=== PATIENT | female | born 1995 ===

== ENCOUNTER 2018-01-19 09:05 | Emergency (ER) | payer MEDICAID, OTHER ==
[2018-01-19 09:26] VITALS: O2SAT 100
--- NOTE | 2018-01-19 10:21 | C.PDOC ---
History Of Present Illness 22 year old female presents to the ER with a complaint of a nonproductive cough , congestion, and flu like symptoms for the past week. Patient has been taking nyquil, dayquil, and theraflu with some improvement of symptoms; however, today she was cleaning with chlorox and inhaled the fumes which exacerbated her cough. Patient states the persistent cough has now caused her chest wall pain and back pain. Denies sore throat, ear pain, or use of control. Chief Complaint (Nursing): Chest Pain History Per: Patient History/Exam Limitations: no limitations Current Symptoms Are (Timing): Still Present Associated Symptoms: denies: Nausea, Dyspnea, Diaphoresis, Syncope Modifying Factors: None Exacerbating Factors: Other (Cough) Alleviating Factors: None Recent travel outside of the [place]: No Past Medical History Reviewed: Historical Data, Nursing Documentation, Vital Signs Vital Signs: Last Vital Signs Temp 98.4 F 01/19/18 14:30 Pulse 85 01/19/18 14:30 Resp 19 01/19/18 14:30 BP 105/66 01/19/18 14:30 Pulse Ox 100 01/19/18 17:20 Surgical History: Appendectomy - [facility] Procedures INJECT ANTIBIOTIC (06/27/14) LAPAROSCOP APPENDECTOMY (09/18/13) PERCUTANEOUS ABDOMINAL DRAINAGE (09/28/13) Family History: States: Unknown Family Hx - Social History Hx Alcohol Use: No Hx Substance Use: No Review Of Systems Constitutional: Positive for: Fever (Subjective) ENT: Negative for: Ear Pain, Throat Pain Respiratory: Positive for: Cough. Negative for: Sputum Musculoskeletal: Positive for: Back Pain, Other (Chest wall pain) Physical Exam - Physical Exam Appears: Non-toxic, No Acute Distress Skin: Normal Color, Warm, Dry Head: Atraumatic, Normacephalic Eye(s): bilateral: Normal Inspection Ear(s): Bilateral: Normal Nose: Normal Oral Mucosa: Moist Throat: Normal, No Erythema, No Exudate Neck: Normal, Supple Chest: Symmetrical, No Tenderness Cardiovascular: Rhythm Regular Respiratory: Normal Breath Sounds, No Rales, No Rhonchi, No Wheezing Gastrointestinal/Abdominal: Soft, No Tenderness Back: No CVA Tenderness, No Vertebral Tenderness, No Paraspinal Tenderness Neurological/Psych: Oriented x3, Normal Speech ED Course And Treatment - Laboratory Results Result Diagrams: 01/19/18 11:11 01/19/18 11:42 O2 Sat by Pulse Oximetry: 100 (Room air) Pulse Ox Interpretation: Normal - Other Rad CXR X-Ray: Viewed By Me, Read By Radiologist Interpretation: Accession No. : [id number]. Patient Name / ID : ZARIA REHMAN / [id number]. Exam Date : 01/19/2018 12:44:31 ( Approved ). Study Comment : Sex / Age : F / 22Y. Creator : Kay Nina MD. Dictator : Kay Nina MD. Electric Cutter Operator : Fuel Cell Systems Engineer : Kay Nina MD. Approver2 : Report Date : 01/19/2018 13:08:39. My Comment : . HISTORY: cough/left pleuritic pain. COMPARISON: None available. TECHNIQUE: Chest PA and lateral. FINDINGS: LUNGS: Subtle patchy lingular opacity may reflect pneumonia. Correlate clinically. Please note that chest x-ray has limited sensitivity for the detection of pulmonary masses. PLEURA: No significant pleural effusion identified. No definite pneumothorax . CARDIOVASCULAR: The cardiomediastinal silhouette appears within normal limits of size. OSSEOUS STRUCTURES: No acute osseous abnormality identified. VISUALIZED UPPER ABDOMEN : Unremarkable. OTHER FINDINGS: None. IMPRESSION: Subtle patchy lingular opacity may reflect pneumonia. Correlate clinically. Progress Note: Blood work and urinalysis ordered. Zithromax po was given. Disposition - Disposition Referrals: [facility] at [facility] [Outside] Disposition: HOME/ ROUTINE Disposition Time: 15:00 Condition: STABLE Additional Instructions: Follow up in Clinic within 1-2 days. Return to ED if feel worse. Prescriptions: Brompheniramine/Pseudoephed/Dm [Bromfed Dm Cough 118 ml] 10 ml PO Q4 #300 ml Ibuprofen [Motrin Tab] 400 mg PO Q8 #30 tab Azithromycin [Zithromax] 250 mg PO DAILY #4 tab Instructions: Acute Bronchitis Forms: [facility] (Kinyarwanda) - Clinical Impression Clinical Impression: Bronchitis - PA / TEACHER CCLC / Resident Statement MD/DO has reviewed & agrees with the documentation as recorded. - Scribe Statement The provider has reviewed the documentation as recorded by the Scribkevin Chu All medical record entries made by the Yoletteibe were at my direction and personally dictated by me. I have reviewed the chart and agree that the record accurately reflects my personal performance of the history, physical exam, medical decision making, and the department course for this patient. I have also personally directed, reviewed, and agree with the discharge instructions and disposition.
[2018-01-19 11:23] LABS: BASO % 0.3 % (0.0-2.0); EOS % 0.5 % (0.0-4.0); HEMOGLOBIN 13.1 g/dL (11.0-16.0); LYMPH # 1.5 K/uL (1.0-4.3); LYMPH % 13.7 % (20.0-40.0); MEAN CELL VOLUME 87.8 fL (81.0-99.0); MEAN CORPUSCULAR HEMOGLOBIN 30.2 pg (27.0-31.0); MEAN CORPUSCULAR HGB CONC 34.5 g/dL (33.0-37.0); MEAN PLATELET VOLUME 9.5 fL (7.2-11.7); MONO # 1.1 K/uL (0.0-0.8); MONO % 10.3 % (0.0-10.0); NEUT # 8.2 K/uL (1.8-7.0); NEUT % 75.2 % (50.0-75.0); RBC 4.32 Mil/uL (3.80-5.20); RED CELL DISTRIBUTION WIDTH 12.4 % (11.5-14.5); WHITE BLOOD COUNT 10.9 K/uL (4.8-10.8)
[2018-01-19 11:34] LABS: HCG,QUALITATIVE URINE NEGATIVE (NEGATIVE)
[2018-01-19 11:38] LABS: PARTIAL THROMBOPLASTIN TIME 31 SECONDS (21-34); PROTHROMBIN TIME 11.8 SECONDS (9.7-12.2)
[2018-01-19 11:40] LABS: SQUAMOUS EPITHIAL 1 /hpf (0-5); URINE BACTERIA RARE (<OCC); URINE BILIRUBIN NEGATIVE (NEGATIVE); URINE BLOOD 1+ (NEGATIVE); URINE CLARITY Clear (Clear); URINE COLOR Yellow (YELLOW); URINE GLUCOSE (UA) NORMAL (Normal); URINE LEUKOCYTE ESTERASE NEG Leu/uL (Negative); URINE NITRATE NEGATIVE (NEGATIVE); URINE PROTEIN NEGATIVE (NEGATIVE); URINE UROBILINOGEN NORMAL mg/dL (0.2-1.0)
[2018-01-19 11:41] LABS: D DIMER < 200 ng/mlDDU (0-243)
[2018-01-19 12:00] LABS: ALB/GLOB RATIO 1.3 (1.0-2.1); ALBUMIN 3.8 g/dL (3.5-5.0); ALT/SGPT 22 U/L (9-52); AST/SGOT 16 U/L (14-36); BLOOD UREA NITROGEN 4 mg/dL (7-17); CALCIUM 8.7 mg/dl (8.6-10.4); GFR AFRICAN-AMERICAN > 60; GFR NON-AFRICAN AMERICAN > 60
[2018-01-19 12:10] LABS: BARBITURATES, UR NEGATIVE (NEGATIVE); BENZODIAZEPINES, UR NEGATIVE (NEGATIVE); OPIATES, UR NEGATIVE (NEGATIVE); PHENCYCLIDINE, UR NEGATIVE (NEGATIVE)
[2018-01-19 12:17] LABS: CK-MB < 0.22 ng/mL (0.0-3.38)
--- NOTE | 2018-01-19 13:10 | RAD ---
HISTORY: cough/left pleuritic pain COMPARISON: None available. TECHNIQUE: Chest PA and lateral FINDINGS: LUNGS: Subtle patchy lingular opacity may reflect pneumonia. Correlate clinically. Please note that chest x-ray has limited sensitivity for the detection of pulmonary masses. PLEURA: No significant pleural effusion identified. No definite pneumothorax . CARDIOVASCULAR: The cardiomediastinal silhouette appears within normal limits of size. OSSEOUS STRUCTURES: No acute osseous abnormality identified. VISUALIZED UPPER ABDOMEN: Unremarkable. OTHER FINDINGS: None. IMPRESSION: Subtle patchy lingular opacity may reflect pneumonia. Correlate clinically.
[2018-01-19 15:20] VITALS: BP 105/66; PULSE 85; RESP 19; TEMP 98.4
--- NOTE | 2018-01-20 12:05 | CARD ---
APPROVED REPORT EKG Measurement Heart [id number] CA 152P [id number] <Conclusion> Normal sinus rhythm with sinus arrhythmia Normal ECG
== END 2018-01-19 15:21 | disposition home or self-care (01) ==
LOC: C.ER 09:05
DX: J40 Bronchitis, not specified as acute or chronic (principal)
CPT/HCPCS: 71046; 80053; 81001; 84484; 84703; 85025; 85378; 85610; 85730; 93005; 99285; G0480